=== PATIENT | male | born 1930 | race Caucasian/White ===

== ENCOUNTER 2017-01-04 09:17 | Day surgery (SDC) | payer OTHER ==
[~2017-01-04] VITALS: Ht 165.1 cm; Wt 86.0 kg
[~2017-01-04 09:17] MED LIST: ASPI81TA3 PO; CARV12.598 PO; CLOP75TA27 PO; ESCI5TAB PO; EZET10TA3 PO; FENO135C3 PO; FOLGARD; FURO-109 PO; LEVEMIR SC; LEVO50TA74 PO; OMEP20CA9 PO; ROSU20TA PO; SOD CHLORIDE 0.9% 1,000 ML IV SCH; VITAMIN PO
[2017-01-04] MEDS ORDERED: FURO20TA3 PO (10:18)
[2017-01-04] MEDS ORDERED: ESCI10TA PO (10:18)
[2017-01-04] MEDS ORDERED: SACU1TAB PO (10:19)
[2017-01-04] MEDS ORDERED: CARV6.25 PO (10:19)
[2017-01-04] MEDS ORDERED: CYAN1TAB2 PO (10:20)
[2017-01-04] MEDS ORDERED: LIRA0.6P SQ (10:21)
[2017-01-04] MEDS ORDERED: INSU100I27 SQ (10:22)
[2017-01-04 10:50] VITALS: BP 106/60; PULSE 81; RESP 18; Ht 165.1 cm; Wt 86.0 kg
[2017-01-04 11:52] LABS: BASOPHIL # 0.1 10^3/ul (0.0-0.1); BASOPHILS % 1.3 % (0.0-2.0); EOSINOPHILS # 0.3 10^3/ul (0.0-0.5); EOSINOPHILS % 4.4 % (0.0-7.0); HEMATOCRIT 39.2 % (42.0-52.0); HEMOGLOBIN 12.7 g/dl (14.0-18.0); LYMPHOCYTES # 1.3 10^3/ul (0.8-2.9); LYMPHOCYTES % 21.1 % (15.0-51.0); MEAN CORPUSCULAR HEMOGLOBIN 30.1 pg (29.0-33.0); MEAN CORPUSCULAR HGB CONC 32.4 g/dl (32.0-37.0); MEAN CORPUSCULAR VOLUME 92.9 fl (82.0-101.0); MEAN PLATELET VOLUME 11.5 fl (7.4-10.4); MONOCYTE # 0.6 10^3/ul (0.3-0.9); MONOCYTES % 9.9 % (0.0-11.0); NEUTROPHILS % 62.8 % (39.0-77.0); PLATELET COUNT 195 10^3/UL (140-415); RED BLOOD COUNT 4.22 10^6/ul (4.70-6.10); RED CELL DISTRIBUTION WIDTH 13.4 % (11.5-14.5)
[2017-01-04 12:01] LABS: INR 1.13; PROTIME 14.5 Sec (12.2-14.2); PT RATIO 1.1
[2017-01-04 12:15] LABS: CALCIUM 9.9 mg/dl (8.4-10.2); CREATININE 1.78 mg/dl (0.61-1.24); POTASSIUM 5.2 mmol/L (3.5-5.1)
--- NOTE | 2017-01-04 12:53 | RADRPT ---
PROCEDURE: XR Chest. CLINICAL INDICATION: Preop TECHNIQUE: Single frontal view of the chest was obtained COMPARISON: None FINDINGS: No pleural effusion or pneumothorax. No consolidation. Stable cardiac silhouette. Dilated aortic arch suggestive of chronic systemic hypertension. Stable left chest wall pacemaker / AICD with 3 intact leads. No acute osseous abnormality. Median sternotomy changes. IMPRESSION: No acute cardiopulmonary disease. RPTAT: EE Physician [place] Date Time Electronically viewed and signed by Juan Corona Physician on 01/04/2017 12:52 /
[2017-01-04 14:20] LABS: PARTIAL THROMBOPLASTIN TIME 35.7 Sec (25.0-35.0)
--- NOTE | 2017-01-04 17:08 | RADRPT ---
Vent Rate: 73 bpm RR Interval: 0 msec [place] Interval: 146 msec QRS Duration: 166 msec QT Interval: 464 msec QTC Interval: 511 msec P-R-T [place]: 49 - 0 - 89 degrees Electronic ventricular pacemaker Electronically Signed By: Dale Bowser [id number]
== END 2017-01-04 15:27 | disposition home or self-care (01) ==
LOC: SDS 09:17
PROVIDERS: ATTEND Internal Medicine Cardiovascular Disease
DX: I73.9 Peripheral vascular disease, unspecified (principal); Z53.9 Procedure and treatment not carried out, unspecified reason
CPT/HCPCS: 71010; 80048; 82962; 85025; 85610; 85730; 93005